=== PATIENT | male | born 1960 | race Caucasian/White ===

== ENCOUNTER → 2020-01-05 | Outpatient (CLI) | payer BC ==
--- NOTE | 2020-01-28 10:11 | REP ---
LEFT FIFTH DIGIT STUDY CLINICAL: Trauma. TECHNIQUE: AP, lateral, and bilateral oblique of the left fifth digit. FINDINGS: There is a small 5 mm foreign body, which appears partially embedded in the soft tissue at the terminal tuft. The underlying osseous structures and joint spaces are intact and age appropriate without fracture or dislocation. IMPRESSION: Small foreign body partially embedded in the soft tissues of the terminal tuft. No fracture or dislocation. MTDD
== END ==
LOC: M WUC 10:49
PROVIDERS: ATTEND Nurse Practitioner Family
DX: M79.645 Pain in left finger(s) (principal); S60.457A Superficial foreign body of left little finger, initial encounter; X58.XXXA Exposure to other specified factors, initial encounter; Y92.9 Unspecified place or not applicable